=== PATIENT | female | born 1975 | race Caucasian/White ===

== ENCOUNTER 2017-12-07 08:17 | Inpatient (IN) | payer MEDICAID, SELFPAY ==
[2017-11-19 13:13] VITALS: BP 133/89; PULSE 92; RESP 16; TEMP 37.1; O2SAT 98; BMI 44.1
--- NOTE | 2017-11-19 13:16 | EKG12_ITS ---
Test Reason : Blood Pressure : / mmHG Vent. Rate : 088 BPM Atrial Rate : 088 BPM P-R Int : 128 ms QRS Dur : 088 ms QT Int : 350 ms P-R-T Axes : 026 016 029 degrees QTc Int : 423 ms Normal sinus rhythm Normal ECG Confirmed by MARGUERITE TORIBIO, CINDI ([id number]), editor house organ BELÉN MUNGUIA ([id number] on 11/23/2017 3:23:39 PM Referred By: Jayant Jones Confirmed By:CINDI EVERETT MD
[2017-11-19 15:32] LABS: Hematocrit 43.2 % (37-47); Hemoglobin 14.3 g/dl (12.0-15.0); Mean Corp Hgb Conc 33.1 g/gl (32-36); Mean Corpuscular Hgb 32.1 pg (27.0-32.0); Mean Corpuscular Volume 96.9 fL (81-99); Mean Platelet Vol. 9.2 fl (6.2-12.0); Platelet Count 483 K/mm3 (150-450); RBC Distribution Width CV 13.7 % (11.6-14.6); RBC Distribution Width SD 48.1 fl (35.1-43.9); Red Blood Count 4.46 M/mm3 (4.2-5.4); White Blood Count 11.5 K/mm3 (4.4-11.0)
[2017-11-19 15:34] LABS: Scan Indicated on CBC? Y/N NO
[2017-11-19 15:57] LABS: Anion Gap 7 (5-15); BUN 12 mg/dL (7-18); Calcium,Total 9.1 mg/dL (8.5-10.1); Chloride 106 mmol/L (98-107); Creatinine, Serum 0.86 mg/dL (0.55-1.02); EST Glomerular Filtration Rate 76 mL/min (>60); Est Glom Filt Rate - Afr Amer 93 mL/min (>60); Estimated Creatinine Clearance 69.05 ml/min; Glucose 93 mg/dL (74-106); Potassium 3.5 mmol/L (3.5-5.1); Sodium Level 139 mmol/L (136-145)
[2017-12-07] VITALS (12 sets, daily range): BP systolic 102–151; BP diastolic 58–91; PULSE 63–89; RESP 16–18; TEMP 35.8–37; O2SAT 96–100; BMI 44.1; BMI 48.6
[2017-12-07] MEDS: Celecoxib 200 MG Capsule 400 MG PO (09:15)
[2017-12-07] MEDS: oxyCODONE HCl Cr 10 MG Tablet PO ×2 (09:15→21:47)
[2017-12-07] MEDS: Acetaminophen 500 MG Tablet 1000 MG PO ×3 (09:15→21:49)
[2017-12-07] MEDS: Lactated Ringers 1,000 ML 999 ML IV (09:28)
[2017-12-07] MEDS: Cefazolin 2 GM in 0.9% Normal Saline 100 ML IV (10:23)
[2017-12-07] MEDS: BUPIVACAINE LIPOSOME/PF 20 ML VIAL OPERA.SITE (11:12)
[2017-12-07] MEDS: Bupivacaine 0.25% 30 ML Vial (11:13)
--- NOTE | 2017-12-07 11:29 | OP.PCM_ITS ---
Report of Operation Date of Procedure: 12/07/17 Pre-Operative Diagnosis: Severe osteoarthritis left knee Post-Operative Diagnosis: Same Surgery/Procedure Performed:: Total knee arthroplasty left Description of Surgical Findings:: Eburnation of bone, periarticular osteophytes, varus alignment tricompartmental osteoarthritic changes applied biology professor: Dayton Salazar Type of Anesthesia:: Spinal Anesthesiologist: Elieezr Roque Special Medications: txa, exparel Specimen's removed: Bone and soft tissue Estimated Blood Loss (mL): 100 Fluids Replaced: See anesthesia report Description of Procedure: Implants: Bergholz triathlon size 3 posterior stabilized press-fit femur, 3 press -fit tibia, 32 x 10 mm press-fit patella with 11 mm posterior stabilized articulating surface Indications: Patient has severe end-stage osteoarthritis diagnosed via x-rays in the knee. They have failed all forms of conservative measures including activity modification, injections, anti-inflammatories, use of assistive device. The patient has pain that affects on a daily basis and prevents him from doing things that they enjoyed. They have elected to undergo the above procedure. The risks of the procedure were discussed at length and their questions were answered. Procedure description: The patient was greeted in the preoperative area. The left knee was then marked with a surgical marker. Patient was then taken to or [address]. They were administered a dose of antibiotics as well as tranexamic acid. Once adequate anesthesia was obtained and airway was secured to placed in supine position on the operating room table. A well-padded tourniquet was placed on the affected extremity. Leg was then prepped and draped in the usual sterile fashion from the knee down. Ioban was used on the skin. Surgical timeout was then performed and confirmed with all present. Six-inch Esmarch was used to examine the limb and tourniquet was then inflated to 250 mmHg. A longitudinal incision was then planned and carried out in the anterior aspect of the knee. The dissection was then carried the length of the incision the extensor mechanism was identified. Standard medial parapatellar arthrotomy was then performed revealing severe eburnation of bone and periarticular osteophytes. There is complete loss of cartilage especially in the medial compartment with varus alignment. Anterior fat pad was removed for visualization purposes and the anterior medial aspect of the tibia was skeletonized for exposure to the knee. The knee was then flexed the patella was inverted. Opening reamer was then used in the femur approximately 1 cm anterior to the attachment of the PCL. The intramedullary valgus wand was then placed in the femur set at 5? of valgus. The distal femoral cutting jig was then applied to the femur with anticipated resection of approximately 8 mm. This was then made with a oscillating saw. The sizing guide was then placed referencing off the posterior condyles and also reference off the epicondylar axis. This was measured and the appropriate size 4-in-1 cutting jig was then applied to the distal femur. Anterior posterior cuts were made followed by the anterior and posterior chamfer cuts. These bony pieces and fragments were removed and placed on the back table. Posterior retractor was then utilized and the tibia was subluxed anteriorly. Extramedullary tibial alignment jig was then applied to the tibia referencing off the medial one third of the tibial tubercle the anterior tibial spine the middle aspect of the tibiotalar joint. Also reference off patient's kenaitze slope. The tibial cutting jig was then pinned with anticipated resection of 2 mm off of the deficient medial tibial condyle. This cut was made with the oscillating saw. Once this was complete a laminar human resource manager was utilized in both medial lateral meniscus were removed and a posterior capsular osteophytes were also removed. Posterior capsule release was performed in the posterior capsule as well as the geniculate arteries are treated with the aqua Maria. The tibia was incised and the appropriate sized tibial tray was then pinned. The femoral box cutting jig was then applied to the femur and the box was prepared removing a portion of the intercondylar notch. The femoral trial was then placed and the knee was trialed. Full flexion-extension were easily achieved. The knee seemed to balance quite nicely. Any remaining osteophytes were removed at this time. Once this was complete the patella was everted and the Chalino patella reaming device was then utilized the patella was then placed in the appropriate jig and reamer was then used to remove approximately 9 mm of the undersurface of the patella. A soft tissue remaining was in the way was removed and patella trial was then placed listed maintain excellent tracking using the no thumbs technique. The tibial tray at this point was punched to accommodate the fins of the final implant. At this point cement was mixed on the back table. The trial components were removed and the knee was copiously irrigated. Did use a cocktail of injection for postoperative pain control. The final components were then press-fit in the standard fashion. tourniquet was deflated and hemostasis was perfect with Bovie cautery as well as the aqua Manus. Needle is once again trialed with different size polyethylenes to ensure the full range of motion was achieved as well as excellent balancing ligamentously was achieved. At this point the knee was copiously irrigated. Final implant was then inserted locking mechanism was engaged and confirmed to be locked. The arthrotomy was then closed with #1 Vicryl aggravate type fashion interrupted. Subcutaneous tissue was closed with 0 Vicryl and surgical verna were placed in the skin. A occlusive silver impregnated dressing was then applied followed by well-padded sterile dressing secured with an Jaren wrap. The patient was taken to the PACU in stable condition. No complications known at this time. Postoperatively we will maintain standard total knee postoperative protocol. The use of the physician market research assistant was integral during this procedure. They assisted with positioning placement of the tourniquet retracting closure and placement of the dressing. The procedure would have been much more difficult without their expertise and assistance - Complications None known - Admit VTE Documentation VTE Present on Admission: Yes VTE Mechan Device Prophylaxis: SCD's, Thigh High CHRISTOPHER Franks
[2017-12-07] MEDS: Scopolamine 1mg/72hr Patch 1 PATCH TD (14:59)
[2017-12-07] MEDS: oxyCODONE 5 MG Tablet PO ×2 (15:06→19:09)
[2017-12-07] MEDS: Ondansetron 4 MG/2 ML Vial IV (15:09)
[2017-12-07] MEDS: CLARIFY ORDER NOTE (15:11)
[2017-12-07] MEDS: Aspirin 325 MG Tablet PO (17:57)
[2017-12-07] MEDS: Gabapentin 300 MG Capsule PO (17:57)
[2017-12-07] MEDS: Cefazolin 1 GM/50 ML BAG IV (17:58)
[2017-12-07] MEDS: clonazePAM 0.5 MG Tablet PO (21:47)
[2017-12-07] MEDS: Senna/Docusate Sodium 1 Tablet 2 TABLET PO (21:48)
[2017-12-07] MEDS: Celecoxib 200 MG Capsule PO (21:48)
[2017-12-07] MEDS: Oxybutynin 5 MG Tablet PO (21:48)
[2017-12-08] MEDS: Cefazolin 1 GM/50 ML BAG IV (02:03)
[2017-12-08 02:05] VITALS: BP 153/81; PULSE 81; RESP 16; TEMP 36.6; O2SAT 100
[2017-12-08] MEDS: oxyCODONE 5 MG Tablet PO ×4 (02:41→17:01)
[2017-12-08] MEDS: Acetaminophen 500 MG Tablet 1000 MG PO ×3 (05:25→21:59)
[2017-12-08 06:24] LABS: Hematocrit 35.8 % (37-47); Hemoglobin 11.8 g/dl (12.0-15.0); Mean Corpuscular Hgb 32.6 pg (27.0-32.0); Mean Corpuscular Volume 98.9 fL (81-99); Mean Platelet Vol. 9.5 fl (6.2-12.0); Platelet Count 338 K/mm3 (150-450); RBC Distribution Width CV 13.5 % (11.6-14.6); RBC Distribution Width SD 47.5 fl (35.1-43.9); Red Blood Count 3.62 M/mm3 (4.2-5.4); White Blood Count 8.3 K/mm3 (4.4-11.0)
[2017-12-08 06:34] LABS: Scan Indicated on CBC? Y/N NO
[2017-12-08 06:46] LABS: Anion Gap 6 (5-15); BUN 13 mg/dL (7-18); BUN/Creat Ratio 17.5 RATIO (10-20); Calcium,Total 8.3 mg/dL (8.5-10.1); Chloride 104 mmol/L (98-107); Creatinine, Serum 0.74 mg/dL (0.55-1.02); EST Glomerular Filtration Rate 90 mL/min (>60); Est Glom Filt Rate - Afr Amer 109 mL/min (>60); Estimated Creatinine Clearance 80.25 ml/min; Glucose 100 mg/dL (74-106); Potassium 4.6 mmol/L (3.5-5.1); Sodium Level 140 mmol/L (136-145)
[2017-12-08] MEDS: Celecoxib 200 MG Capsule PO ×2 (07:43→21:58)
[2017-12-08] MEDS: Aspirin 325 MG Tablet PO ×2 (07:43→16:58)
[2017-12-08] MEDS: Oxybutynin 5 MG Tablet PO ×2 (07:43→21:58)
[2017-12-08] MEDS: Gabapentin 300 MG Capsule PO ×3 (07:43→16:57)
[2017-12-08] MEDS: Magnesium Oxide 400 MG Tablet 200 MG PO (07:44)
[2017-12-08] MEDS: Lisinopril 10 MG Tablet PO (07:45)
[2017-12-08] MEDS: Senna/Docusate Sodium 1 Tablet 2 TABLET PO ×2 (07:45→21:58)
[2017-12-08] MEDS: Famotidine 20 MG Tablet PO (07:46)
[2017-12-08] MEDS: Sertraline 50 MG Tablet PO (07:46)
--- NOTE | 2017-12-08 07:52 | PCM.PN.ORT ---
Subjective: Patient sitting up in bed, states she still having a lot of pain. Denies chest pain, shortness breath, calf pain, nausea vomiting. No respiratory distress. Patient states this is similar pain she experienced with her previous total knee Objective: Dressings clean dry intact, negative signs and symptoms of DVT. Patient's vitals and labs are all within normal limits. Patient is afebrile neurovascular is otherwise intact. Patient stated that she was still having pain however she was sleeping comfortably when I will arrived to the room - Physical Exam General: Alert, Oriented x3, Cooperative HEENT: PERRLA Neurological: Cranial nerves II-XII grossly intact Psych/Mental Status: Normal Affect, Alert and oriented to time, place, person, mood and affect Vital Signs Temp Pulse Resp BP Pulse Ox 97.8 F 81 16 153/81 H 100 12/08/17 02:05 12/08/17 02:05 12/08/17 02:05 12/08/17 02:05 12/08/17 02:05 Oxygen Delivery Method Room Air Weight: 126.6 kg Body Mass Index (BMI) 48.6 Intake and Output for Last 24 Hours 12/06/17 12/07/17 12/08/17 23:59 23:59 23:59 Intake Total 1893 / 1893 292 / 292 Output Total 300 / 300 300 / 300 Balance 1593 / 1593 -8 / -8 Laboratory Tests Past 24 Hrs 12/08/17 12/08/17 05:32 05:32 WBC 8.3 RBC 3.62 L Hgb 11.8 L Hct 35.8 L MCV 98.9 MCH 32.6 H MCHC 33.0 RDW 13.5 RDW Differential 47.5 H Plt Count 338 MPV 9.5 Sodium 140 Potassium 4.6 Chloride 104 Carbon Dioxide 30.0 Anion Gap 6 BUN 13 Creatinine 0.74 Estim Creat Clear Calc 80.25 Est GFR (MDRD) Af Amer 109 Est GFR (MDRD) Non-Af 90 BUN/Creatinine Ratio 17.5 Glucose 100 Calcium 8.3 L Medical Necessity - Tobacco Use Smoking Status: Light Smoker (<10/day) Assessment/Plan Status post left total knee arthroplasty Plan 1. Continue all pain medications as prescribed 2. Begin physical therapy today, weight-bear as tolerated with walker. 3. Aspirin 325 mg 1 p.o. every 12 hours times 30 days for postop DVT prophylaxis 4. Encourage incentive spirometry 5. Possible discharge home tomorrow
[2017-12-08 08:05] VITALS: BP 157/80; PULSE 91; RESP 18; TEMP 36.9; O2SAT 94
[2017-12-08] MEDS: clonazePAM 0.5 MG Tablet PO ×2 (10:19→21:58)
[2017-12-08] MEDS: oxyCODONE HCl Cr 10 MG Tablet PO ×2 (10:19→21:58)
--- NOTE | 2017-12-08 11:23 | CASEMGMT ---
ELENA ANGEL Face to Face with patient for initial transition planning/care coordination assessment. ELENA ANGEL introduced self and role at [facility]. Patient lying in bed, alert and oriented. Patient willing to participate in assessment and is able to answer all questions appropriately. Care providers, pharmacy, and demographics verified. See link attached. Patient wishes to discharge home and is requesting [facility]HC by [facility] for therapy. Patient states that she also needs BSC. RN JEANNE will assist with obtaining a script for BSC, patient states she will take script to preferred DME company. Patient states she has no further needs or concerns at this time. CM to follow for discharge planning needs that may arise. Disposition Plan: Patient to discharge home with HHC, family support, and follow-up plans in place.
[2017-12-08 14:05] VITALS: BP 159/105; PULSE 89; RESP 18; TEMP 36.9; O2SAT 94
[2017-12-08] MEDS: CLARIFY ORDER NOTE (14:23)
--- NOTE | 2017-12-08 15:32 | CASEMGMT ---
RN JEANNE received call back from [place] and they are unable to accept the patient due to no staffing in [facility]. RN CM called additional 8 [facility] in the [facility] that are in-network with [employer] and all 8 denied patient either out of service area, no staffing, or do not accept patients insurance. RN JEANNE called [facility] and requested clinical information be sent and will review. RN CM will await call back from [facility] on status of referral. RN JEANNE will continue to follow this patient and plan for a safe discharge.
[2017-12-08 21:15] VITALS: BP 167/96; PULSE 94; RESP 16; TEMP 36.8; O2SAT 95
[2017-12-09] MEDS: oxyCODONE 5 MG Tablet PO ×4 (03:07→16:34)
[2017-12-09 03:13] VITALS: BP 156/89; PULSE 89; RESP 18; TEMP 36.7; O2SAT 95
[2017-12-09] MEDS: Acetaminophen 500 MG Tablet 1000 MG PO ×2 (05:05→14:53)
[2017-12-09 06:05] LABS: Hematocrit 33.8 % (37-47); Hemoglobin 11.5 g/dl (12.0-15.0); Mean Corpuscular Hgb 33.3 pg (27.0-32.0); Mean Platelet Vol. 9.7 fl (6.2-12.0); Platelet Count 301 K/mm3 (150-450); RBC Distribution Width CV 13.2 % (11.6-14.6); RBC Distribution Width SD 45.2 fl (35.1-43.9); Red Blood Count 3.45 M/mm3 (4.2-5.4); White Blood Count 10.4 K/mm3 (4.4-11.0)
[2017-12-09 06:13] LABS: Scan Indicated on CBC? Y/N NO
--- NOTE | 2017-12-09 09:21 | CASEMGMT ---
ELENA ANGEL followed up with [facility] and confirmed that they are able to accept the patient. ELENA ANGEL obtained script for BSC and provided to patient to take to her preferred DME closer to home. ELENA ANGEL updated patient regarding HHC setup with [facility] with start of care 12/10. CM will continue to follow this patient and plan for a safe discharge.
[2017-12-09 10:05] VITALS: BP 147/63; PULSE 91; RESP 18; TEMP 37.3; O2SAT 97
[2017-12-09] MEDS: clonazePAM 0.5 MG Tablet PO (10:06)
[2017-12-09] MEDS: oxyCODONE HCl Cr 10 MG Tablet PO (10:07)
[2017-12-09] MEDS: Magnesium Oxide 400 MG Tablet 200 MG PO (10:08)
[2017-12-09] MEDS: Gabapentin 300 MG Capsule PO ×3 (10:08→16:15)
[2017-12-09] MEDS: Celecoxib 200 MG Capsule PO (10:08)
[2017-12-09] MEDS: Aspirin 325 MG Tablet PO ×2 (10:08→16:15)
[2017-12-09] MEDS: Lisinopril 10 MG Tablet PO (10:08)
[2017-12-09] MEDS: Oxybutynin 5 MG Tablet PO (10:09)
[2017-12-09] MEDS: Sertraline 50 MG Tablet PO (10:09)
[2017-12-09] MEDS: Famotidine 20 MG Tablet PO (10:09)
--- NOTE | 2017-12-09 11:25 | PN.ORTHO_ITS ---
Subjective: Patient lying in bed sleeping, easy to awake. Patient states pain is well- managed. Denies chest pain, shortness breath, calf pain, nausea vomiting. Objective: Dressings clean dry intact, negative signs and symptoms of DVT. Vital signs labs all within normal limits. Patient is afebrile neurovascular is intact. - Physical Exam General: Alert, Oriented x3, Cooperative Neurological: Cranial nerves II-XII grossly intact Psych/Mental Status: Normal Affect, Alert and oriented to time, place, person, mood and affect Vital Signs Temp Pulse Resp BP Pulse Ox 99.2 F H 91 18 147/63 H 97 12/09/17 10:05 12/09/17 10:05 12/09/17 10:05 12/09/17 10:05 12/09/17 10:05 Oxygen Delivery Method Room Air Weight: 126.6 kg Body Mass Index (BMI) 48.6 Intake and Output for Last 24 Hours 12/07/17 12/08/17 12/09/17 23:59 23:59 23:59 Intake Total 1893 / 1893 292 / 292 Output Total 300 / 300 600 / 600 Balance 1593 / 1593 -308 / -308 Laboratory Tests Past 24 Hrs 12/09/17 05:15 WBC 10.4 RBC 3.45 L Hgb 11.5 L Hct 33.8 L MCV 98.0 MCH 33.3 H MCHC 34.0 RDW 13.2 RDW Differential 45.2 H Plt Count 301 MPV 9.7 Medical Necessity - Tobacco Use Smoking Status: Light Smoker (<10/day) Assessment/Plan Status post left total knee arthroplasty Plan 1. Continue all pain medications as prescribed 2. Continue physical therapy with home therapy, weight-bear as tolerated with walker. 3. Aspirin 325 mg 1 p.o. every 12 hours times 30 days for postop DVT prophylaxis 4. Follow-up as scheduled 5. Discharge home today
--- NOTE | 2017-12-09 11:36 | PCM.DC.TKR ---
Discharge Diet: No Restrictions Discharge Activity: May Not Drive, May Shower, Use Walker May shower in (days): 3 Ice area for (Minutes): 20 - each hour while awake. Weight Bearing Status: Weight bearing as tolerated Elevate: Operative Extremity Additional Activity Instructions:: Wear elastic stockings for 2 weeks after your surgery. Call your doctor if your incision/area has: Continuous Slow Oozing, Sudden Increased Bleeding, Increased Pain/ Swelling, Increased Redness, Foul Smelling Discharge Call your doctor if you observe: Fever of 101 or Higher, Coldness, Increased Pain - in extremity, Numbness or Tingling, Change in Color, Calf discomfort, Uncontrolled pain Change Dressing in (Days):: 0 - and daily as needed. Remove Dressing in (days):: 8 Cleanse incision/area with: Soap & Water Allergies/Adverse Reactions: Allergies morphine Allergy (Verified 11/19/17 14:39) throat swelling ketorolac [From Toradol] Adverse Reaction (Verified 11/19/17 14:39) Abd cramps/diarrhea meperidine [From Demerol] Adverse Reaction (Verified 11/19/17 14:39) Abd cramps/diarrhea methocarbamol [From Robaxin] Adverse Reaction (Verified 11/19/17 14:38) blood in stool tramadol [From Ultram] Adverse Reaction (Verified 11/19/17 14:39) Abd cramps/diarrhea Medications to take at Discharge Albuterol Sulfate [Ventolin Hfa] 1 - 2 inh IH Q4H PRN PRN 11/19/17 Benzonatate 200 mg PO DAILY 11/19/17 Citalopram Hydrobromide [Celexa] 20 mg PO BID 11/19/17 Clonazepam [Klonopin] 0.5 mg PO BID 11/19/17 Cyanocobalamin (Vitamin B-12) [Vitamin B-12] 1,000 mcg PO DAILY 11/19/17 Cyclobenzaprine [Flexeril] 10 mg PO TID 11/19/17 Divalproex Sodium [Depakote] 500 mg PO DAILY 11/19/17 Gabapentin [Neurontin] 300 mg PO TID 11/19/17 Lisinopril [Zestril] 10 mg PO DAILY 11/19/17 Magnesium Oxide [Magnesium] 250 mg PO DAILY 11/19/17 Omeprazole [Prilosec] 20 mg PO DAILY 11/19/17 Oxybutynin Chloride [Ditropan Xl] 10 mg PO QHS 11/19/17 Pentoxifylline [Trental] 400 mg PO DAILY 11/19/17 Riboflavin [Vitamin B2] 100 mg PO DAILY 11/19/17 Sertraline HCl [Zoloft] 100 mg PO DAILY 11/19/17 Acetaminophen [Tylenol] 1,000 mg PO Q8 #90 tab 12/09/17 Aspirin 325 mg PO BIDCM #60 tab 12/09/17 Oxycodone CR [Oxycontin] 10 mg PO BID 7 Days #14 tab 12/09/17 Oxycodone [Oxyir] 5 - 10 mg PO Q4H PRN PRN 7 Days #90 tab 12/09/17 The following prescriptions were given: Oxycodone [Oxyir] 5 - 10 mg PO Q4H PRN PRN 7 Days #90 tab PRN Reason: Mod-Severe Pain (4-1010) Acetaminophen [Tylenol] 1,000 mg PO Q8 #90 tab Aspirin 325 mg PO BIDCM #60 tab Oxycodone CR [Oxycontin] 10 mg PO BID 7 Days #14 tab Primary Care Physician: [facility] Doctor,Out of [Primary Care Provider] - Test Results: Test results from this visit will be discussed in further detail at your follow-up appointment, if applicable. Please Follow Up With: Jayant Jones, DO When: see pink sheet
[2017-12-09 14:55] VITALS: BP 142/58; PULSE 95; RESP 16; TEMP 36.8; O2SAT 96
== END 2017-12-09 19:22 | disposition home health service (06) | DRG 209 ==
PROVIDERS: Admitting Provider Orthopaedic Surgery; Visit Provider Orthopaedic Surgery
PROC: 0SRD0JA Replacement of Left Knee Joint with Synthetic Substitute, Uncemented, Open Approach (ICD-10-PCS; CPT 27447; principal; 2017-12-07 09:50)
DX: M17.12 Unilateral primary osteoarthritis, left knee (principal)
CPT/HCPCS: 36415; 80048; 85027; 87077; 87081; 93005; 97110; 97116; 97162; 97166; 97530; 97535; 97802; C1776; J7120; J2405